=== PATIENT | male | born 1990 | race American Indian/Alaskan Native ===

== ENCOUNTER 2020-01-19 19:43 | Emergency (ER) | payer MEDICAID ==
--- NOTE | 2020-01-19 21:10 | Emergency Department Report ---
<ALEXISMARCELINO - Last Filed: 01/20/20 12:53> ED Altered Mental Status HPI - General Chief Complaint: Altered Mental Status Stated Complaint: AMS Time Seen by Provider: 01/19/20 21:06 - Related Data Home Medications Medication Instructions Recorded Confirmed Last Taken Unobtainable 01/20/20 01/20/20 Unknown Allergies Allergy/AdvReac Type Severity Reaction Status Date / Time No Known Allergies Allergy Unverified 01/19/20 19:54 ED Past Medical Hx - Medications Home Medications: Home Medications Medication Instructions Recorded Confirmed Last Taken Type Unobtainable 01/20/20 01/20/20 Unknown History - Lab Data Result diagrams: 01/19/20 21:58 01/20/20 02:28 - Medical Decision Making I had extensive conversation with mental health contract clerk automobile regarding Mr. Arriola presentation. He does not meet inpatient criteria. He does not appear to be a harm to himself or others. He is now eating in the emergency department. He is speaking coherently to the nursing staff. He is discharged home. ED Disposition Clinical Impression: Metabolic acidosis, Decreased responsiveness, Dehydration, Hyperkalemia, Catatonia Altered mental status Qualifiers: Altered mental status type: unspecified Qualified Code(s): R41.82 - Altered mental status, unspecified Disposition: DC-01 TO HOME OR SELFCARE Is pt being admited?: No Does the pt Need Aspirin: No Condition: Stable Referrals: PRIMARY CARE, [Primary Care Provider] - 2-3 Days <SAI BONILLA III - Last Filed: 01/21/20 02:16> ED Altered Mental Status HPI - General Source: EMS Mode of arrival: Wheelchair Limitations: Altered Mental Status - History of Present Illness Initial Comments: Patient is a 29-year-old male that presents emergency room with complaints of altered mental status. Per EMS the patient's family states he has not eaten in a week. Patient is not talking at this time. Patient has a known history of being blind. Complaint: altered mental status, decreased responsiveness -: Gradual, week(s) Severity: severe ED Review of Systems ROS: Stated complaint: AMS Other details as noted in HPI Comment: Unobtainable due to pts medical conditions ED Past Medical Hx - Past Medical History Previous Medical History?: Yes Additional medical history: blind - Surgical History Past Surgical History?: No - Family History Family history: no significant - Social History Smoking Status: Unknown if ever smoked Substance Use Type: None, Other ED Physical Exam - General Limitations: Altered Mental Status, Physical Limitation General appearance: lethargic - Head Head exam: Present: atraumatic, normocephalic - Eye Eye exam: Present: normal appearance, other (h/o blindness. Pupils nonreactive) - ENT ENT exam: Present: mucous membranes dry - Neck Neck exam: Present: normal inspection - Respiratory Respiratory exam: Present: normal lung sounds bilaterally. Absent: respiratory distress, wheezes, rales - Cardiovascular Cardiovascular Exam: Present: regular rate, normal rhythm. Absent: systolic murmur, diastolic murmur, rubs, gallop - GI/Abdominal GI/Abdominal exam: Present: soft, normal bowel sounds. Absent: distended, tenderness - Rectal Rectal exam: Present: deferred - Extremities Exam Extremities exam: Present: normal inspection - Back Exam Back exam: Present: normal inspection - Neurological Exam Neurological exam: Present: altered - Expanded Neurological Exam Expanded Best Eye Response ([place]): (4) open spontaneously Best Motor Response ([place]): (2) extension to pain Best Verbal Response ([place]): (2) incomprehsible sounds [place] Total: 8 - Skin Skin exam: Present: warm, dry, intact, normal color. Absent: rash - Assessment Assessment Interval: Baseline - Level of Consciousness 1a. Level of Consciousness: coma/unresponsive - LOC Questions 1b. LOC Questions: aphasic - LOC Command 1c. LOC Commands: performs no tasks correctly - Best Gaze 2. Best Gaze: normal - Visual 3. Visual: no visual loss - Facial Palsy 4. Facial Palsy: normal symmetrical movement - Motor Arm 5a. Motor Arm Left: no drift 5b. Motor Arm Right: no drift - Motor Leg 6a. Motor Leg Left: no drift 6b. Motor Leg Right: no drift - Limb Ataxia 7. Limb Ataxia: absent - Sensory 8. Sensory: coma/unresponsive - Best Language 9. Best Language: mute/global aphasia - Dysarthria 10. Dysarthria: mute/anarrthric - Extinction and Inattention 11. Extinction/Inattention: no abnormality - Scoring Total Score: 14 Stroke Severity: Moderate Stroke ED Course Vital Signs 01/19/20 01/19/20 01/19/20 19:50 21:00 22:00 Temperature 97.8 F Pulse Rate 100 H 79 62 Respiratory 18 16 16 Rate Blood Pressure 124/88 106/82 110/77 Blood Pressure [Right] O2 Sat by Pulse 90 Oximetry 01/19/20 01/19/20 01/20/20 23:00 23:10 00:00 Temperature Pulse Rate 82 79 62 Respiratory 17 14 13 Rate Blood Pressure 103/79 103/79 111/82 Blood Pressure [Right] O2 Sat by Pulse Oximetry 01/20/20 01/20/20 01/20/20 01:04 02:00 03:00 Temperature Pulse Rate 80 47 L 49 L Respiratory 11 L 13 11 L Rate Blood Pressure 111/82 118/82 110/78 Blood Pressure [Right] O2 Sat by Pulse 99 100 100 Oximetry 01/20/20 01/20/20 01/20/20 04:00 05:00 06:00 Temperature Pulse Rate 49 L 48 L 51 L Respiratory 11 L 14 12 Rate Blood Pressure 116/78 112/78 106/77 Blood Pressure [Right] O2 Sat by Pulse 99 100 99 Oximetry 01/20/20 01/20/20 01/20/20 07:00 08:00 09:00 Temperature Pulse Rate 51 L 54 L 101 H Respiratory 13 14 15 Rate Blood Pressure 111/81 106/73 110/80 Blood Pressure [Right] O2 Sat by Pulse 100 100 97 Oximetry 01/20/20 01/20/20 01/20/20 10:00 11:00 12:00 Temperature Pulse Rate 69 70 82 Respiratory 16 15 17 Rate Blood Pressure 103/67 109/72 100/65 Blood Pressure [Right] O2 Sat by Pulse 100 96 Oximetry 01/20/20 01/20/20 01/21/20 13:00 20:54 01:27 Temperature 98.4 F Pulse Rate 95 H 89 Respiratory 18 18 18 Rate Blood Pressure 99/68 Blood Pressure 91/59 [Right] O2 Sat by Pulse 99 98 98 Oximetry - Reevaluation(s) Reevaluation #1: Patient deep responsiveness. Patient was ambulatory from the stretcher to the bed. Patient is minimally verbal. Patient opens eyes spontaneously patient we will monitor the patient. Patient's vital signs are currently stable. 01/19/20 21:09 Reevaluation #2: Patient was able to stand to urinate in the room. Patient's neuro exam is unchanged. 01/19/20 22:10 Reevaluation #3: Patient has a increased responsiveness to pain. 01/19/20 23:54 Reevaluation #4: Patient given multiple liters of fluid. Patient's labs improved. This appears to be secondary to psych. Patient placed on ER hold. Patient at this time can be medically cleared due to the improvement in his labs. Patient's final disposition will come from our psych and mental health team. 01/20/20 03:49 Ammonia was placed under the patient's nose and the patient woke up and answer questions. 01/20/20 04:14 - Lab Data Result diagrams: 01/19/20 21:58 01/20/20 02:28 Lab Results 01/19/20 01/19/20 01/19/20 Range/Units 20:17 20:17 21:58 WBC 8.1 (4.5-11.0) K/mm3 RBC 5.27 H (3.65-5.03) M/mm3 Hgb 18.3 H (11.8-15.2) gm/dl Hct 52.6 H (35.5-45.6) % MCV 100 H (84-94) fl MCH 35 H (28-32) pg MCHC 35 H (32-34) % RDW 12.7 L (13.2-15.2) % Plt Count 133 L (140-440) K/mm3 Lymph % (Auto) Supervisor Grounds [place] % (Auto) Supervisor [employer]ounds Eos % (Auto) Supervisor [employer]ounds Baso % (Auto) Supervisor Grounds Lymph # Supervisor Grounds [place]he # Supervisor Grounds Eos # Supervisor Grounds Baso # Supervisor Grounds Seg Neutrophils % Supervisor Grounds Seg Neutrophils # Supervisor Grounds VBG pH (7.320-7.420) Sodium (137-145) mmol/L Potassium (3.6-5.0) mmol/L Chloride (98-107) mmol/L Carbon Dioxide (22-30) mmol/L Anion Gap mmol/L BUN (9-20) mg/dL Creatinine (0.8-1.5) mg/dL Estimated GFR ml/min BUN/Creatinine Ratio % Glucose (75-100) mg/dL Calcium (8.4-10.2) mg/dL Total Bilirubin (0.1-1.2) mg/dL Direct Bilirubin (0-0.2) mg/dL Indirect Bilirubin mg/dL AST (5-40) units/L ALT (7-56) units/L Alkaline Phosphatase (35-129) units/L Ammonia (25-60) umol/L Total Creatine Kinase (55-170) units/L Total Protein (6.3-8.2) g/dL Albumin (3.9-5) g/dL Albumin/Globulin Ratio % Urine Color (Yellow) Urine Turbidity (Clear) Urine pH (5.0-7.0) Ur Specific [place] (1.003-1.030) Urine Protein (Negative) mg/dL Urine Glucose (UA) (Negative) mg/dL Urine Ketones (Negative) mg/dL Urine Blood (Negative) Urine Nitrite (Negative) Urine Bilirubin (Negative) Urine Urobilinogen (<2.0) mg/dL Ur Leukocyte Esterase (Negative) Urine WBC (Auto) (0.0-6.0) /HPF Urine RBC (Auto) (0.0-6.0) /HPF U Epithel Cells (Auto) (0-13.0) /HPF Urine Mucus /HPF Salicylates < 0.3 L (2.8-20.0) mg/dL Urine Opiates Screen Urine Methadone Screen Acetaminophen < 5.0 L (10.0-30.0) ug/mL Ur Barbiturates Screen Ur Phencyclidine Scrn Ur Amphetamines Screen U Benzodiazepines Scrn Urine Cocaine Screen U Marijuana (THC) Screen Drugs of Abuse Note 01/19/20 01/19/20 01/19/20 Range/Units 21:58 21:58 21:58 WBC (4.5-11.0) K/mm3 RBC (3.65-5.03) M/mm3 Hgb (11.8-15.2) gm/dl Hct (35.5-45.6) % MCV (84-94) fl MCH (28-32) pg MCHC (32-34) % RDW (13.2-15.2) % Plt Count (140-440) K/mm3 Lymph % (Auto) [place] % (Auto) Eos % (Auto) Baso % (Auto) Lymph # [place] # Eos # Baso # Seg Neutrophils % Seg Neutrophils # VBG pH 7.299 L (7.320-7.420) Sodium 143 (137-145) mmol/L Potassium 5.2 H (3.6-5.0) mmol/L Chloride 104.1 (98-107) mmol/L Carbon Dioxide 18 L (22-30) mmol/L Anion Gap 26 mmol/L BUN 28 H (9-20) mg/dL Creatinine 1.1 (0.8-1.5) mg/dL Estimated GFR > 60 ml/min BUN/Creatinine Ratio 25 % Glucose 72 L (75-100) mg/dL Calcium 10.2 (8.4-10.2) mg/dL Total Bilirubin 1.30 H (0.1-1.2) mg/dL Direct Bilirubin 0.2 (0-0.2) mg/dL Indirect Bilirubin 1.1 mg/dL AST 25 (5-40) units/L ALT 11 (7-56) units/L Alkaline Phosphatase 83 (35-129) units/L Ammonia (25-60) umol/L Total Creatine Kinase (55-170) units/L Total Protein 8.8 H (6.3-8.2) g/dL Albumin 5.0 (3.9-5) g/dL Albumin/Globulin Ratio 1.3 % Urine Color (Yellow) Urine Turbidity (Clear) Urine pH (5.0-7.0) Ur Specific [place] (1.003-1.030) Urine Protein (Negative) mg/dL Urine Glucose (UA) (Negative) mg/dL Urine Ketones (Negative) mg/dL Urine Blood (Negative) Urine Nitrite (Negative) Urine Bilirubin (Negative) Urine Urobilinogen (<2.0) mg/dL Ur Leukocyte Esterase (Negative) Urine WBC (Auto) (0.0-6.0) /HPF Urine RBC (Auto) (0.0-6.0) /HPF U Epithel Cells (Auto) (0-13.0) /HPF Urine Mucus /HPF Salicylates (2.8-20.0) mg/dL Urine Opiates Screen Urine Methadone Screen Acetaminophen (10.0-30.0) ug/mL Ur Barbiturates Screen Ur Phencyclidine Scrn Ur Amphetamines Screen U Benzodiazepines Scrn Urine Cocaine Screen U Marijuana (THC) Screen Drugs of Abuse Note 01/19/20 01/19/20 01/19/20 Range/Units 22:15 22:15 Unknown WBC (4.5-11.0) K/mm3 RBC (3.65-5.03) M/mm3 Hgb (11.8-15.2) gm/dl Hct (35.5-45.6) % MCV (84-94) fl MCH (28-32) pg MCHC (32-34) % RDW (13.2-15.2) % Plt Count (140-440) K/mm3 Lymph % (Auto) [place] % (Auto) Eos % (Auto) Baso % (Auto) Lymph # [place] # Eos # Baso # Seg Neutrophils % Seg Neutrophils # VBG pH (7.320-7.420) Sodium (137-145) mmol/L Potassium (3.6-5.0) mmol/L Chloride (98-107) mmol/L Carbon Dioxide (22-30) mmol/L Anion Gap mmol/L BUN (9-20) mg/dL Creatinine (0.8-1.5) mg/dL Estimated GFR ml/min BUN/Creatinine Ratio % Glucose (75-100) mg/dL Calcium (8.4-10.2) mg/dL Total Bilirubin (0.1-1.2) mg/dL Direct Bilirubin (0-0.2) mg/dL Indirect Bilirubin mg/dL AST (5-40) units/L ALT (7-56) units/L Alkaline Phosphatase (35-129) units/L Ammonia (25-60) umol/L Total Creatine Kinase 231 H (55-170) units/L Total Protein (6.3-8.2) g/dL Albumin (3.9-5) g/dL Albumin/Globulin Ratio % Urine Color Yellow (Yellow) Urine Turbidity Clear (Clear) Urine pH 5.0 (5.0-7.0) Ur Specific [place] 1.025 (1.003-1.030) Urine Protein <15 mg/dl (Negative) mg/dL Urine Glucose (UA) Neg (Negative) mg/dL Urine Ketones 20 (Negative) mg/dL Urine Blood Lg (Negative) Urine Nitrite Neg (Negative) Urine Bilirubin Neg (Negative) Urine Urobilinogen < 2.0 (<2.0) mg/dL Ur Leukocyte Esterase Neg (Negative) Urine WBC (Auto) 4.0 (0.0-6.0) /HPF Urine RBC (Auto) 41.0 (0.0-6.0) /HPF U Epithel Cells (Auto) < 1.0 (0-13.0) /HPF Urine Mucus 3+ /HPF Salicylates (2.8-20.0) mg/dL Urine Opiates Screen Presumptive negative Urine Methadone Screen Presumptive negative Acetaminophen (10.0-30.0) ug/mL Ur Barbiturates Screen Presumptive negative Ur Phencyclidine Scrn Presumptive negative Ur Amphetamines Screen Presumptive negative U Benzodiazepines Scrn Presumptive negative Urine Cocaine Screen Presumptive negative U Marijuana (THC) Screen Presumptive negative Drugs of Abuse Note Disclamer 01/20/20 01/20/20 Range/Units 01:00 02:28 WBC (4.5-11.0) K/mm3 RBC (3.65-5.03) M/mm3 Hgb (11.8-15.2) gm/dl Hct (35.5-45.6) % MCV (84-94) fl MCH (28-32) pg MCHC (32-34) % RDW (13.2-15.2) % Plt Count (140-440) K/mm3 Lymph % (Auto) [place] % (Auto) Eos % (Auto) Baso % (Auto) Lymph # [place] # Eos # Baso # Seg Neutrophils % Seg Neutrophils # VBG pH (7.320-7.420) Sodium 144 (137-145) mmol/L Potassium 4.7 (3.6-5.0) mmol/L Chloride 107.9 H (98-107) mmol/L Carbon Dioxide 22 (22-30) mmol/L Anion Gap 19 mmol/L BUN 26 H (9-20) mg/dL Creatinine 1.2 (0.8-1.5) mg/dL Estimated GFR > 60 ml/min BUN/Creatinine Ratio 22 % Glucose 85 (75-100) mg/dL Calcium 8.8 (8.4-10.2) mg/dL Total Bilirubin (0.1-1.2) mg/dL Direct Bilirubin (0-0.2) mg/dL Indirect Bilirubin mg/dL AST (5-40) units/L ALT (7-56) units/L Alkaline Phosphatase (35-129) units/L Ammonia 38.0 (25-60) umol/L Total Creatine Kinase (55-170) units/L Total Protein (6.3-8.2) g/dL Albumin (3.9-5) g/dL Albumin/Globulin Ratio % Urine Color (Yellow) Urine Turbidity (Clear) Urine pH (5.0-7.0) Ur Specific [place] (1.003-1.030) Urine Protein (Negative) mg/dL Urine Glucose (UA) (Negative) mg/dL Urine Ketones (Negative) mg/dL Urine Blood (Negative) Urine Nitrite (Negative) Urine Bilirubin (Negative) Urine Urobilinogen (<2.0) mg/dL Ur Leukocyte Esterase (Negative) Urine WBC (Auto) (0.0-6.0) /HPF Urine RBC (Auto) (0.0-6.0) /HPF U Epithel Cells (Auto) (0-13.0) /HPF Urine Mucus /HPF Salicylates (2.8-20.0) mg/dL Urine Opiates Screen Urine Methadone Screen Acetaminophen (10.0-30.0) ug/mL Ur Barbiturates Screen Ur Phencyclidine Scrn Ur Amphetamines Screen U Benzodiazepines Scrn Urine Cocaine Screen U Marijuana (THC) Screen Drugs of Abuse Note - EKG Data -: EKG Interpreted by Me EKG shows normal: sinus rhythm, axis, intervals, QRS complexes, ST-T waves Rate: normal - Radiology Data Radiology results: report reviewed, image reviewed interpreted by me: CHEST 1 VIEW INDICATION / CLINICAL INFORMATION: ams. COMPARISON: None available. FINDINGS: SUPPORT DEVICES: None. HEART / MEDIASTINUM: No significant abnormality. LUNGS / PLEURA: No significant pulmonary or pleural abnormality. No pneumothorax. ADDITIONAL FINDINGS: Thoracolumbar scoliosis. IMPRESSION: 1. No acute findings. CT head/brain wo con INDICATION / CLINICAL INFORMATION: Altered Mental Status, Pt won't speak. unable to get a proper history.. TECHNIQUE: All CT scans at this location are performed using CT dose reduction for ALARA by means of automated exposure control. COMPARISON: None available. FINDINGS: No intracranial hemorrhage. No abnormal extra-axial fluid collection. No evidence of large territorial infarction or mass effect. The ventricular system and basilar cisterns are normal. Right ocular atrophy. Surgical changes are seen in the left globe. No skeletal abnormality. Visualized paranasal sinuses are clear. IMPRESSION: 1. No acute intracranial abnormality. - Medical Decision Making Patient is a 29-year-old male who presents emergency room with complaints of altered mental status for 1 week[address] Patient had a CT of the head done which was negative for acute findings. Patient's chest x-ray was negative. Patient's labs were consistent with metabolic acidosis. Patient's clinical findings are consistent with acidosis, dehydration and altered mental status. Patient's ammonia was negative. Patient's found to have a low serum pH. Patient given fluids in ER. Patient labs improved. Patient became more responsive to pain. Patient clinical findings appear to be secondary to dehydration and a psychiatric condition. Patient placed on a ER hold. Will have psych evaluate the patient for final disposition. - Differential Diagnosis ams. Encephalopathy, acidosis, DKA, psychiatric condition, catatonic state Critical Care Time: Yes Critical care time in (mins) excluding proc time.: 35 Critical care attestation.: If time is entered above; I have spent that time in minutes in the direct care of this critically ill patient, excluding procedure time. Critical Care Time: 35 minutes ED Disposition Is pt being admited?: No Does the pt Need Aspirin: No Time of Disposition: 03:53
[2020-01-19 22:15] LABS: Hematocrit 52.6 % (35.5-45.6); Hemoglobin 18.3 gm/dl (11.8-15.2); Mean Corpuscular HGB Conc 35 % (32-34); Mean Corpuscular Volume 100 fl (84-94); Red Blood Count 5.27 M/mm3 (3.65-5.03); Red Cell Distribution Width 12.7 % (13.2-15.2)
[2020-01-19 22:24] LABS: Bilirubin,Direct 0.2 mg/dL (0-0.2)
[2020-01-19] MEDS ORDERED: SODIUM CHLORIDE 0.9% 1000 ML 1,000 ML IV ONE ×2 (22:34→23:52)
[2020-01-19 22:40] LABS: BUN/Creatinine Ratio 25; Blood Urea Nitrogen 28 mg/dL (9-20); Calcium 10.2 mg/dL (8.4-10.2); Hemolysis Index 74
[2020-01-19 22:57] LABS: Bilirubin,Urine NEG (Negative); Blood,Urine LG (Negative); Color,Urine Yellow (Yellow); Mucus,Urine 3+ /HPF; Protein,Urine <15 mg/dL mg/dL (Negative); Urobilinogen,Urine < 2.0 mg/dL (<2.0)
[2020-01-19 22:58] LABS: Platelet Count 133 K/mm3 (140-440)
[2020-01-19 23:01] LABS: Amphetamine Screen,Urine PRESUMPTIVE NEGATIVE; Benzodiazepines Screen,Urine PRESUMPTIVE NEGATIVE; Cannabinoid Screen,Urine PRESUMPTIVE NEGATIVE; Cocaine Screen,Urine PRESUMPTIVE NEGATIVE; Methadone Screen,Urine PRESUMPTIVE NEGATIVE; Opiate Screen,Urine PRESUMPTIVE NEGATIVE
--- NOTE | 2020-01-20 01:01 | Cat Scan Report ---
CT head/brain wo con INDICATION / CLINICAL INFORMATION: Altered Mental Status, Pt won't speak. unable to get a proper history.. TECHNIQUE: All CT scans at this location are performed using CT dose reduction for ALARA by means of automated e xposure control. COMPARISON: None available. FINDINGS: No intracranial hemorrhage. No abnormal extra-axial fluid collection. No evidence of large territorial infarction or mass effect. The ventricular system and basilar cisterns are normal. Right ocular atrophy. Surgical changes are seen in the left globe. No skeletal abnormality. Visualized paranasal sinuses are clear. IMPRESSION: 1. No acute intracranial abnormality. Signer Name: Jamil Lopes MD Signed: 01/20/2020 12:57 AM Workstation Name: [id number]
--- NOTE | 2020-01-20 01:38 | XRay Report ---
CHEST 1 VIEW INDICATION / CLINICAL INFORMATION: ams. COMPARISON: None available. FINDINGS: SUPPORT DEVICES: None. HEART / MEDIASTINUM: No significant abnormality. LUNGS / PLEURA: No significant pulmonary or pleural abnormality. No pneumothorax. ADDITIONAL FINDINGS: Thoracolumbar scoliosis. IMPRESSION: 1. No acute findings. Signer Name: Jamil Lopes MD Signed: 01/20/2020 1:34 AM Workstation Name: [id number]
[2020-01-20] MEDS ORDERED: SODIUM CHLORIDE 0.9% 1000 ML 1,000 ML IV ONE (01:44)
[2020-01-20 03:11] LABS: BUN/Creatinine Ratio 22; Blood Urea Nitrogen 26 mg/dL (9-20); Calcium 8.8 mg/dL (8.4-10.2); Hemolysis Index 13
[2020-01-21 07:44] VITALS: BP 100/67
== END 2020-01-21 14:38 | disposition home or self-care (01) ==
LOC: ED 19:43
DX: E87.2 Acidosis (principal); E86.0 Dehydration; R41.82 Altered mental status, unspecified; E87.5 Hyperkalemia; F20.2 Catatonic schizophrenia
CPT/HCPCS: 36415; 70450; 80048; 80076; 80307; 81001; 82140; 82550; 82805; 85025; 93005; 93010; 96360; 96361; 99285; J7030; 71045; 80320; 82962; G0480

== ENCOUNTER 2020-02-14 19:15 | Emergency (ER) | payer MEDICAID ==
--- NOTE | 2020-02-14 19:45 | Emergency Department Report ---
ED Psych HPI - General Chief Complaint: Psych Stated Complaint: MEDICAL CLEARANCE Time Seen by Provider: 02/14/20 19:37 Source: patient, family Mode of arrival: Ambulatory Limitations: Other - History of Present Illness Initial Comments: Mr. Arriola is a 29-year-old male with history of schizophrenia was just recently discharged from our emergency department for catatonia 1 hour prior to returning for treatment.. He returned immediately after police were contacted. He refused to get into his siblings car. He has been losing weight. He will lay on the sofa and urinating defecating self. He refuses to take medications. I did observe our ER staff escorting Mr. Arriola to the vehicle. He was ambulatory. Mr. Arriola refuses to give a history. -: unknown Associated Psychiatric Symptoms: other (Unable to perform activities of daily living) Improves With: none Worsens With: none Context: not taking psychiatric, other (Just discharged from our emergency department) Treatments Prior to Arrival: other (Just discharged from our emergency department) - Related Data Home Medications Medication Instructions Recorded Confirmed Last Taken Unobtainable 01/20/20 01/20/20 Unknown Allergies Allergy/AdvReac Type Severity Reaction Status Date / Time No Known Allergies Allergy Unverified 01/19/20 19:54 ED Review of Systems ROS: Stated complaint: MEDICAL CLEARANCE Other details as noted in HPI Comment: Unobtainable due to pts medical conditions (Mr. Arriola refuses to give history) ED Past Medical Hx - Past Medical History Previous Medical History?: Yes Additional medical history: blind - Surgical History Past Surgical History?: No - Social History Smoking Status: Unknown if ever smoked - Medications Home Medications: Home Medications Medication Instructions Recorded Confirmed Last Taken Type Unobtainable 01/20/20 01/20/20 Unknown History ED Physical Exam - General Limitations: Other General appearance: alert, in no apparent distress - Head Head exam: Present: normocephalic, other (Left eye protruding, left side of face appear to have remote previous trauma) - Eye Eye exam: Present: normal appearance - ENT ENT exam: Present: mucous membranes moist - Neck Neck exam: Present: normal inspection, full ROM - Respiratory Respiratory exam: Present: normal lung sounds bilaterally. Absent: respiratory distress, wheezes, rales, rhonchi - Cardiovascular Cardiovascular Exam: Present: regular rate, normal rhythm, normal heart sounds. Absent: systolic murmur, diastolic murmur, rubs, gallop - GI/Abdominal GI/Abdominal exam: Present: soft, normal bowel sounds. Absent: distended, tenderness, guarding, rebound - Rectal Rectal exam: Present: deferred - Extremities Exam Extremities exam: Present: normal inspection - Back Exam Back exam: Present: normal inspection - Neurological Exam Neurological exam: Present: alert, normal gait, other (Does not speak) - Psychiatric Psychiatric exam: Present: flat affect - Skin Skin exam: Present: warm, dry, intact, normal color. Absent: rash ED Course Vital Signs 02/14/20 02/14/20 02/14/20 19:23 19:29 19:34 Temperature 98.0 F 98.1 F Pulse Rate 104 H 95 H Respiratory 18 18 16 Rate Blood Pressure 129/98 Blood Pressure 125/91 [Left] O2 Sat by Pulse 98 98 99 Oximetry ED Medical Decision Making - Lab Data Result diagrams: 02/14/20 19:49 02/14/20 19:49 Laboratory Results - last 24 hr 02/14/20 02/14/20 02/14/20 19:49 19:49 19:49 WBC 6.9 RBC 3.84 Hgb 13.4 Hct 41.6 MCV 108 H MCH 35 H MCHC 32 RDW 15.8 H Plt Count 283 Lymph % (Auto) Diagrammer And Seamer [place] % (Auto) Diagrammer [employer] Seamer Eos % (Auto) Diagrammer [employer] Seamer Baso % (Auto) Diagrammer [employer] Seamer Lymph # Diagrammer And Seamer [place] # Diagrammer [employer] Seamer Eos # Diagrammer And Seamer Baso # Diagrammer [employer] Seamer Seg Neutrophils % Diagrammer [employer] Seamer Seg Neutrophils # Diagrammer And Seamer Sodium 140 Potassium 3.5 L Chloride 100.0 Carbon Dioxide 22 Anion Gap 22 BUN 12 Creatinine 0.9 Estimated GFR > 60 BUN/Creatinine Ratio 13 Glucose 90 Calcium 10.4 H Total Bilirubin 1.10 AST 22 ALT 45 Alkaline Phosphatase 94 Total Protein 8.8 H Albumin 4.9 Albumin/Globulin Ratio 1.3 Salicylates < 0.3 L Acetaminophen Plasma/Serum Alcohol 02/14/20 02/14/20 19:49 19:49 WBC RBC Hgb Hct MCV MCH MCHC RDW Plt Count Lymph % (Auto) [place] % (Auto) Eos % (Auto) Baso % (Auto) Lymph # [place] # Eos # Baso # Seg Neutrophils % Seg Neutrophils # Sodium Potassium Chloride Carbon Dioxide Anion Gap BUN Creatinine Estimated GFR BUN/Creatinine Ratio Glucose Calcium Total Bilirubin AST ALT Alkaline Phosphatase Total Protein Albumin Albumin/Globulin Ratio Salicylates Acetaminophen < 5.0 L Plasma/Serum Alcohol < 0.01 - Medical Decision Making Mr. Arriola was just discharged prior to return to emergency department for evaluation of catatonia and schizophrenia. He will need additional psychiatric care as well as case management for disposition. He is currently medically clear for psychiatric care. I have reviewed labs CBC chemistry serum toxicology all within normal limits Critical care attestation.: If time is entered above; I have spent that time in minutes in the direct care of this critically ill patient, excluding procedure time. ED Disposition Clinical Impression: Catatonia, Psychosis, Conversion muteness Condition: Stable Referrals: PRIMARY CARE, [Primary Care Provider] - 3-5 Days
[2020-02-14 20:25] LABS: Hematocrit 41.6 % (35.5-45.6); Hemoglobin 13.4 gm/dl (11.8-15.2); Mean Corpuscular HGB Conc 32 % (32-34); Mean Corpuscular Volume 108 fl (84-94); Platelet Count 283 K/mm3 (140-440); Red Blood Count 3.84 M/mm3 (3.65-5.03); Red Cell Distribution Width 15.8 % (13.2-15.2)
[2020-02-14 20:36] LABS: Alanine Aminotransferase 45 units/L (7-56); Albumin 4.9 g/dL (3.9-5); BUN/Creatinine Ratio 13; Blood Urea Nitrogen 12 mg/dL (9-20); Calcium 10.4 mg/dL (8.4-10.2); Hemolysis Index 16
[2020-02-15 06:00] LABS: Amphetamine Screen,Urine PRESUMPTIVE NEGATIVE; Bacteria,Urine 1+ /HPF (Negative); Benzodiazepines Screen,Urine PRESUMPTIVE NEGATIVE; Bilirubin,Urine NEG (Negative); Blood,Urine MOD (Negative); Cannabinoid Screen,Urine PRESUMPTIVE NEGATIVE; Cocaine Screen,Urine PRESUMPTIVE NEGATIVE; Color,Urine Yellow (Yellow); Methadone Screen,Urine PRESUMPTIVE NEGATIVE; Mucus,Urine 3+ /HPF; Opiate Screen,Urine PRESUMPTIVE NEGATIVE; Protein,Urine <15 mg/dL mg/dL (Negative)
[2020-02-15] MEDS ORDERED: LORazepam 2 MG/ML VIAL IM STA (09:40)
--- NOTE | 2020-02-15 09:44 | Consultation ---
History of Present Illness - Reason for Consult Consult date: 02/15/20 Reason for consult: MHE Requesting physician: MARCELINO ALEXIS - Chief Complaint Chief complaint: Catatonic - History of Present Psychiatric Illness Chief complaint: I reviewed patients records, Nurse reports patient communicates only when he wants to make his needs known. I attempted to interview the patient this morning. he is awake and sited upright in bed. Patient not responding to my questioning. Briefly later, nurse reports patient had called on her for assistance, I then went back to try again. Patient remained mute. P.S This patient was observed by me using rest room by himself yesterday and dressing up. He also ambulated to car when being picked up by family per physician note. Concern for selective mutism, patient had been reported to have mentioned to want to kill self. REVIEW OF SYSTEMS Unable to assess MENTAL STATUS EXAMINATION Unable to assess Assessment Major Depressive Disorder, Severe Selective Mutism Plan Lorazepam IM 2mg Sitter: derfer to primary Medical: Per primary Disposition: Acute inpatient pyschiatric hospitalization recommended when medically cleared. FOLLOW UP: Will Follow The treatment plan, including medication benefits and side effects were discussed with the patient's sister. She verbalized understanding and agreement. Please call with any questions or concerns. Thank you for this consult. Medications and Allergies Allergies Allergy/AdvReac Type Severity Reaction Status Date / Time No Known Allergies Allergy Unverified 01/19/20 19:54 Home Medications Medication Instructions Recorded Confirmed Last Taken Type Unobtainable 01/20/20 01/20/20 Unknown History Active Meds: Active Medications Lorazepam (Ativan) 2 mg IM ONCE STA Stop: 02/15/20 09:41 Mental Status Exam - Vital signs Last Vital Signs Temp 97.6 F 02/15/20 04:54 Pulse 86 02/15/20 04:54 Resp 16 02/15/20 04:54 BP 117/84 02/15/20 04:54 Pulse Ox 100 02/15/20 04:54 Results Result Diagrams: 02/14/20 19:49 02/14/20 19:49 Abnormal lab results 02/14/20 02/14/20 02/14/20 Range/Units 05:26 19:49 19:49 MCV 108 H (84-94) fl MCH 35 H (28-32) pg RDW 15.8 H (13.2-15.2) % Potassium 3.5 L (3.6-5.0) mmol/L Calcium 10.4 H (8.4-10.2) mg/dL Total Protein 8.8 H (6.3-8.2) g/dL Urine WBC (Auto) 22.0 H (0.0-6.0) /HPF Salicylates (2.8-20.0) mg/dL Acetaminophen (10.0-30.0) ug/mL 02/14/20 02/14/20 Range/Units 19:49 19:49 MCV (84-94) fl MCH (28-32) pg RDW (13.2-15.2) % Potassium (3.6-5.0) mmol/L Calcium (8.4-10.2) mg/dL Total Protein (6.3-8.2) g/dL Urine WBC (Auto) (0.0-6.0) /HPF Salicylates < 0.3 L (2.8-20.0) mg/dL Acetaminophen < 5.0 L (10.0-30.0) ug/mL All other labs normal. Assessment and Plan - Psychiatric problem (1) Catatonia Current Visit: Yes Status: Acute (2) Conversion muteness Current Visit: Yes Status: Acute
--- NOTE | 2020-02-16 12:57 | Progress Note ---
Subjective - Reason for Consult Consult date: 02/16/20 Reason for consult: MHE Requesting physician: MARCELINO ALEXIS - Chief Complaint Chief complaint: Per Nurse Note: pt ate 2 pancakes and approx 1/2 serving of scrambled eggs. pt was fed by [employer] in area. pt did speak when asked if he wanted milk or juice. pt clearly stated, "juice." 02/15/2020: Pt is now talking to neighbor and to care staff. He states he is waiting for his mom to come. HPI I reviewed patients records, Nurse reports patient communicates only when he wants to make his needs known. Patient also communicated with another female patient in the room next to him as indicated in nurse notes This morning I observed patient being fed, he gave instructions on how he wants his meal. and opened his mouth to be fed. I attempted to interview the patient this morning. he is awake and sited upright in bed. Patient not responding to my questioning. Briefly later, nurse reports patient had called on her for assistance, I then went back to try again. Patient remained mute. Concern for selective mutism, aptient able to make needs known when he wants to REVIEW OF SYSTEMS Unable to assess MENTAL STATUS EXAMINATION Unable to assess Assessment Major Depressive Disorder, Severe Selective Mutism Plan Sitter: defer to primary Medical: Per primary Disposition: No Acute inpatient pyschiatric hospitalization recommended. Family to meet with PCP on nursing assistance at home as needed. FOLLOW UP: Will sign off The treatment plan, including medication benefits and side effects were discussed with the patient's sister. She verbalized understanding and agreement. Please call with any questions or concerns. Thank you for this consult. Mental Status Exam - Vital signs Last Vital Signs Temp 97.8 F 02/16/20 02:00 Pulse 96 H 02/16/20 02:00 Resp 18 02/16/20 02:00 BP 120/83 02/16/20 02:00 Pulse Ox 98 02/16/20 02:00 Assessment and Plan - Patient Problems (1) Catatonia Current Visit: Yes Status: Acute (2) Conversion muteness Current Visit: Yes Status: Acute
[2020-02-17 08:21] VITALS: BP 119/81
== END 2020-02-17 18:00 | disposition home or self-care (01) ==
LOC: ED 19:15 → EEVIPCON 19:15 → ED 02-17 18:00
DX: F20.2 Catatonic schizophrenia (principal); F23 Brief psychotic disorder; F44.89 Other dissociative and conversion disorders
CPT/HCPCS: 36415; 80048; 80053; 80307; 80320; 81001; 85025; 87086; G0480

== ENCOUNTER 2020-03-11 17:40 | Emergency (ER) | payer MEDICAID ==
[2020-03-11 17:47] VITALS: BP 127/70
[2020-03-11] MEDS ORDERED: MAGNESIUM HYDROXIDE (MOM) ORAL LIQD UDC PO PRN (17:50)
[2020-03-11] MEDS ORDERED: ALUM-MAG HYDROXIDE-SIMETHICONE 200-200-20MG/5ML ORAL LIQD 30 ML PO PRN (17:50)
[2020-03-11] MEDS ORDERED: ACETAMINOPHEN 325 MG TAB PO PRN (17:50)
--- NOTE | 2020-03-11 17:50 | Emergency Department Report ---
ED Psych HPI - General Chief Complaint: Psych Stated Complaint: PSYCH EVAL Time Seen by Provider: 03/11/20 17:46 Source: patient, EMS Mode of arrival: Ambulatory Limitations: No Limitations - History of Present Illness Initial Comments: Mr. Arriola is a 29-year-old male with history of blindness who presents via EMS. His family members desired psychiatric evaluation. Twice he has walked into the street today. He has not taken his psychiatric medications. Family members feel as if he is at risk for deliberate self-harm. Paramedics states that Mr. Arriola stated that he did not want to hurt himself. Mr. Arriola at this time refuses to provide any history. I have taking care of Mr. Arriola on previous occasions. He will speak to certain nursing staff members. However he choicely chooses to speak or not speak on different occasions. Complaint: other (Walking into traffic not taking psychiatric medications) -: Gradual Associated Psychiatric Symptoms: depression History of same: Yes Quality: constant Improves With: none Worsens With: none Context: not taking psychiatric Associated Symptoms: denies other symptoms Treatments Prior to Arrival: none If Self Harm: other (Patient is walking into traffic) - Related Data Home Medications Medication Instructions Recorded Confirmed Last Taken Unobtainable 01/20/20 01/20/20 Unknown Allergies Allergy/AdvReac Type Severity Reaction Status Date / Time No Known Allergies Allergy Unverified 01/19/20 19:54 ED Review of Systems ROS: Stated complaint: PSYCH EVAL Other details as noted in HPI Comment: Unobtainable due to pts medical conditions (Patient refuses to give history.) ED Past Medical Hx - Past Medical History Previous Medical History?: Yes Additional medical history: blind - Surgical History Past Surgical History?: Yes - Social History Smoking Status: Never Smoker - Medications Home Medications: Home Medications Medication Instructions Recorded Confirmed Last Taken Type Unobtainable 01/20/20 01/20/20 Unknown History ED Physical Exam - General Limitations: Other General appearance: alert, in no apparent distress - Head Head exam: Present: atraumatic, normocephalic - Eye Eye exam: Present: other (Left eye proptotic abnormal eye color bilaterally) - ENT ENT exam: Present: mucous membranes moist - Neck Neck exam: Present: normal inspection, full ROM - Respiratory Respiratory exam: Present: normal lung sounds bilaterally. Absent: respiratory distress - Cardiovascular Cardiovascular Exam: Present: regular rate, normal rhythm, normal heart sounds. Absent: systolic murmur, diastolic murmur, rubs, gallop - GI/Abdominal GI/Abdominal exam: Present: soft, normal bowel sounds. Absent: distended, tenderness, guarding, rebound - Extremities Exam Extremities exam: Present: normal inspection - Back Exam Back exam: Present: normal inspection - Neurological Exam Neurological exam: Present: alert - Psychiatric Psychiatric exam: Present: depressed, flat affect, other (Patient refuses to give history although paramedics stated that he spoke briefly to them) - Skin Skin exam: Present: warm, dry, intact, normal color. Absent: rash ED Course Vital Signs 03/11/20 17:46 Temperature 98.1 F Pulse Rate 98 H Respiratory 19 Rate Blood Pressure 127/70 [Left] O2 Sat by Pulse 98 Oximetry ED Medical Decision Making - Lab Data Result diagrams: 03/11/20 17:55 03/11/20 17:55 - Medical Decision Making Mr. Arriola presents with acute depression. It appears that he is at risk for self-harm by walking into the street. He did deny intention to harm himself to paramedics. Often times, Mr. Arriola will not give history or speak to certain team members in the emergency department. He is medically clear for psychiatric care. Awaiting treatment recommendations by psychiatric team. Mr. Arriola finally spoke to me. He stated that he wanted to go home. I requested that he speak with our mental health road worker prior to discharge. He agreed. He spoke freely and extensively with our mental health road worker. His mother 11 years ago. He is frustrated and upset with his state in life. He mostly stays at home and sits around. He is worried that his life will not measure up too much. When he sits at home he just gets in his head. Our mental health road worker has provided several resources including home on site mental health care. Also provided resources for college education and skill training. He currently does not present to be a harm to himself or others. I in the mental health road worker agree that he may be discharged home. I have reviewed labs obtained. CBC chemistry serum toxicology all within normal limits. Critical care attestation.: If time is entered above; I have spent that time in minutes in the direct care of this critically ill patient, excluding procedure time. ED Disposition Clinical Impression: Depression Disposition: DC-01 TO HOME OR SELFCARE Is pt being admited?: No Does the pt Need Aspirin: No Condition: Stable Instructions: Depression (ED)
[2020-03-11 18:16] LABS: Basophils # (Auto) 0.1 K/mm3 (0.0-0.1); Basophils % (Auto) 1.1 % (0.0-1.8); Eosinophils # (Auto) 0.1 K/mm3 (0.0-0.4); Eosinophils % (Auto) 1.3 % (0.0-4.3); Hematocrit 41.5 % (35.5-45.6); Hemoglobin 13.5 gm/dl (11.8-15.2); Lymphocytes # (Auto) 2.4 K/mm3 (1.2-5.4); Lymphocytes % (Auto) 32.4 % (13.4-35.0); Mean Corpuscular HGB Conc 33 % (32-34); Mean Corpuscular Volume 106 fl (84-94); Monocytes # (Auto) 0.9 K/mm3 (0.0-0.8); Monocytes % (Auto) 11.4 % (0.0-7.3); Platelet Count 179 K/mm3 (140-440); Red Blood Count 3.93 M/mm3 (3.65-5.03); Red Cell Distribution Width 13.7 % (13.2-15.2)
[2020-03-11 18:40] LABS: Alanine Aminotransferase 42 units/L (7-56); Albumin 4.5 g/dL (3.9-5); BUN/Creatinine Ratio 9; Blood Urea Nitrogen 8 mg/dL (9-20); Calcium 9.6 mg/dL (8.4-10.2); Hemolysis Index 23
== END 2020-03-11 19:45 | disposition home or self-care (01) ==
LOC: ED 17:40
DX: F32.9 Major depressive disorder, single episode, unspecified (principal); H54.7 Unspecified visual loss
CPT/HCPCS: 36415; 80053; 80320; 84443; 85025; G0480